=== PATIENT | female | born 2005 | race Two or more races ===

== ENCOUNTER 2025-04-12 15:28 | Emergency (ER) | payer BC ==
[~2025-04-12] VITALS: Ht 157.5 cm; Wt 65.8 kg
[2025-04-12 15:36] VITALS: BP 131/74; TEMP 97.9
[2025-04-12] MEDS ORDERED: LIDOCAINE HCL/PF 1% 30 ML SDV ONE (15:57)
[2025-04-12] MEDS ORDERED: ACETAMINOPHEN ES 500 MG TABLET ONE (15:57)
[2025-04-12] MEDS ORDERED: TDAP [DIPH/PERTUSSIS/TET] 0.5 ML VIAL IM ONE (15:58)
[2025-04-12] MEDS ORDERED: IBUPROFEN 600 MG TABLET ONE (15:58)
[2025-04-12] MEDS: TDAP [DIPH/PERTUSSIS/TET] 0.5 ML VIAL IM ONE (16:05)
[2025-04-12] MEDS: IBUPROFEN 600 MG TABLET PO ONE (16:06)
[2025-04-12] MEDS: LIDOCAINE HCL/PF 1% 30 ML VIAL TP ONE (16:07)
[2025-04-12] MEDS: ACETAMINOPHEN ES 500 MG TABLET PO ONE (16:07)
[2025-04-12 16:59] VITALS: O2SAT 100
== END 2025-04-12 16:59 | disposition home or self-care (01) ==
LOC: ER 15:37
DX: S61.334A Puncture wound without foreign body of right ring finger with damage to nail, initial encounter (principal); F17.200 Nicotine dependence, unspecified, uncomplicated; Z88.0 Allergy status to penicillin; W23.0XXA Caught, crushed, jammed, or pinched between moving objects, initial encounter; Y93.89 Activity, other specified; Y92.89 Other specified places as the place of occurrence of the external cause; Y99.8 Other external cause status
CPT/HCPCS: 99285; 11760; 90471; 90715; J3490 ×2

== ENCOUNTER 2025-04-15 10:59 | Emergency (ER) | payer BC ==
[~2025-04-15] VITALS: Ht 162.6 cm; Wt 63.0 kg
[2025-04-15 11:11] VITALS: BP 112/68; TEMP 98.4
[2025-04-15] MEDS ORDERED: SULF1TAB48 PO (11:25)
[2025-04-15 11:47] VITALS: O2SAT 96
== END 2025-04-15 11:47 | disposition home or self-care (01) ==
LOC: ER 11:11
DX: T81.49XA Infection following a procedure, other surgical site, initial encounter (principal); S61.33 Puncture wound without foreign body of finger with damage to nail; Z60.2 Problems related to living alone; X58.XXXD Exposure to other specified factors, subsequent encounter; Y92.89 Other specified places as the place of occurrence of the external cause